=== PATIENT | female | born 1965 | race African-American/Black ===

== ENCOUNTER 2016-10-14 10:55 | Inpatient (IN) | payer OTHER, MEDICAID, MEDICARE ==
[~2016-10-14] VITALS: Ht 172.7 cm; Wt 149.0 kg
[~2016-10-14 10:55] MED LIST: ALBUAER3 INH; ANTI1CRE6 TOP; ASPI325T PO; FERR325T PO; FURO1TAB62 PO; GABA600T PO; PREG25 PO; TRAM50TA PO
[2016-10-14] MEDS ORDERED: VITA100064 PO (11:49)
[2016-10-14] MEDS ORDERED: LURA40 PO (11:49)
[2016-10-14] MEDS: LACTATED RINGER'S 1000 ML IV SCH (11:50)
[2016-10-14 11:56] VITALS: BP 135/58; PULSE 62; RESP 20; TEMP 97.9; O2SAT 96
[2016-10-14 12:12] LABS: AUTOMATED NEUTROPHIL # 2.3 TH/MM3 (1.8-7.7); EOSINOPHIL # 0.1 TH/MM3 (0-0.4); EOSINOPHIL % 2.8 % (0.0-4.0); HEMO FLAGS DIFF FINAL; LYMPH % 39.1 % (9.0-44.0); LYMPHOCYTE # 1.7 TH/MM3 (1.0-4.8); MEAN CELL VOLUME 88.2 FL (80.0-100.0); MEAN CORPUSCULAR HEMOGLOBIN 28.7 PG (27.0-34.0); MEAN CORPUSCULAR HGB CONC 32.6 % (32.0-36.0); MONO % 5.6 % (0.0-8.0); NEUT % 51.5 % (16.0-70.0); PLATELET COUNT 137 TH/MM3 (150-450); RED BLOOD COUNT 4.19 MIL/MM3 (4.00-5.30); RED CELL DISTRIBUTION WIDTH 18.9 % (11.6-17.2); WHITE BLOOD COUNT 4.4 TH/MM3 (4.0-11.0)
[2016-10-14] MEDS: SODIUM CHLORID 0.9% 500 ML IV SCH (12:15)
[2016-10-14] MEDS ORDERED: INSULIN HUMAN REGULAR 1,000 UNITS/10 ML VIAL SQ PRN (12:15)
[2016-10-14] MEDS ORDERED: ceFAZolin 2 GM PREMIX 50 ML IV SCH ×2 (12:15→12:45)
[2016-10-14] MEDS ORDERED: METOPROLOL TARTRATE 25 MG TAB PO PRN (12:15)
[2016-10-14] MEDS ORDERED: BUPIVACAINE/EPINEPHRINE 0.25% PF 30 ML VIAL ONE ×2 (13:28→15:16)
[2016-10-14] MEDS ORDERED: NEOSTIGMINE 3 MG/3 ML SYR IV ONE (13:55)
[2016-10-14] MEDS ORDERED: PROPOFOL 200 MG/20 ML AMP IV ONE (13:55)
[2016-10-14] MEDS ORDERED: ONDANSETRON HCL 4 MG/2 ML VIAL IV PUSH ONE (13:55)
[2016-10-14] MEDS ORDERED: KETOROLAC TROMETHAMINE 60 MG/2 ML (IM) VIAL IM ONE (13:55)
[2016-10-14] MEDS ORDERED: VANCOMYCIN HCL 1000 MG VIAL ONE (13:59)
[2016-10-14] MEDS ORDERED: SODIUM CHLOR 0.9% 250 ML INJ 250 ML ONE (13:59)
[2016-10-14] MEDS: LACTATED RINGER'S 1000 ML INJ 1,000 ML IV SCH (16:26)
[2016-10-14] MEDS ORDERED: Post-op Orders (for Pharmacy) MISC XX ONE (16:30)
[2016-10-14] MEDS ORDERED: ONDANSETRON HCL 4 MG/2 ML VIAL IV PRN (16:30)
[2016-10-14] MEDS ORDERED: SODIUM CHLORIDE 0.9% FLUSH 5 ML FLUSH IVF PRN (16:30)
[2016-10-14] MEDS ORDERED: oxyCODONE/ACETAMINOPHEN 5 MG/325 MG TAB PO PRN (16:30)
[2016-10-14] MEDS ORDERED: KETOROLAC TROMETHAMINE 30 MG/ML (IVP) VIAL IVP PRN (16:30)
[2016-10-14] MEDS ORDERED: diphenhydrAMINE HCL 50 MG/ML VIAL IVP PRN (16:30)
[2016-10-14] MEDS ORDERED: NALOXONE HCL 0.4 MG/ML AMP IV PRN (16:30)
[2016-10-14] MEDS ORDERED: DO NOT ADM ANY ANTICOAGULANT DRUGS XX PRN (16:36)
[2016-10-14] MEDS ORDERED: *morphine SULFATE 8 MG/ML PERIprocedure ONLY ONE ×2 (16:44→17:14)
[2016-10-14] MEDS ORDERED: MORPHINE SULFATE 4 MG/ML INJ ONE (16:45)
[2016-10-14] MEDS ORDERED: fentaNYL CITRATE 250 MCG/5 ML AMP ONE (16:45)
[2016-10-14] MEDS: MORPHINE SULFATE 30 MG/30 ML PCA IV SCH ×2 (17:12→22:37)
[2016-10-14 19:26] VITALS: O2SAT 97
[2016-10-14 20:00] VITALS: BP_SYST 126; BP_SYST 155; BP_DIAS 58; BP_DIAS 84; PULSE 106; PULSE 53; RESP 19; TEMP 96; TEMP 99.4; O2SAT 100; O2SAT 97
[2016-10-14] MEDS: PCA - TOTAL MG MORPHINE DELIVERED PER SHIFT SCH (20:35)
[2016-10-14] MEDS: SODIUM CHLORIDE 0.9% FLUSH 5 ML FLUSH IVF SCH (20:37)
[2016-10-15] VITALS (7 sets, daily range): BP systolic 112–158; BP diastolic 55–75; PULSE 54–88; RESP 18–20; TEMP 96–97.9; O2SAT 95–99
[2016-10-15] MEDS: LACTATED RINGER'S 1000 ML INJ 1,000 ML IV SCH ×2 (04:35→20:31)
[2016-10-15] MEDS: SODIUM CHLORID 0.9% 500 ML IV SCH (04:55)
[2016-10-15 05:40] LABS: AUTOMATED NEUTROPHIL # 8.1 TH/MM3 (1.8-7.7); BASOPHIL % 0.5 % (0.0-2.0); HEMO FLAGS DIFF FINAL; LYMPH % 12.2 % (9.0-44.0); LYMPHOCYTE # 1.2 TH/MM3 (1.0-4.8); MEAN CELL VOLUME 89.7 FL (80.0-100.0); MEAN CORPUSCULAR HEMOGLOBIN 29.2 PG (27.0-34.0); MEAN CORPUSCULAR HGB CONC 32.6 % (32.0-36.0); MONO % 3.6 % (0.0-8.0); NEUT % 83.7 % (16.0-70.0); PLATELET COUNT 132 TH/MM3 (150-450); RED BLOOD COUNT 4.24 MIL/MM3 (4.00-5.30); WHITE BLOOD COUNT 9.7 TH/MM3 (4.0-11.0)
[2016-10-15] MEDS: PCA - TOTAL MG MORPHINE DELIVERED PER SHIFT SCH ×3 (05:40→20:32)
[2016-10-15 06:08] LABS: BICARBONATE 28.2 MEQ/L (21.0-32.0); POTASSIUM 4.1 MEQ/L (3.5-5.1)
[2016-10-15] MEDS: LACTATED RINGER'S 1000 ML IV SCH (06:55)
[2016-10-15] MEDS: SODIUM CHLORIDE 0.9% FLUSH 5 ML FLUSH IVF SCH ×2 (06:55→20:31)
--- NOTE | 2016-10-15 07:56 | MP ---
cc: JAKE JONES M.D. DATE OF SURGERY 10/14/2016 PREOPERATIVE DIAGNOSES 1. Ventral incisional hernia. 2. Morbid obesity, BMI of 50. POSTOPERATIVE DIAGNOSES 1. Ventral incisional hernia. 2. Morbid obesity, BMI of 50. PROCEDURE PERFORMED 1. Laparoscopic ventral incisional hernia repair with mesh (Caldwell-Ayden 18 x 24). 2. Laparoscopic lysis of adhesions greater than one hour. SURGEON Jake Jones MD UPHOLSTERER HELPER Jose Madsen MD ANESTHESIA General endotracheal. COMPLICATIONS None. INDICATIONS FOR PROCEDURE Ms. Conner is a very pleasant 51-year-old morbidly obese female who apparently underwent a gastric bypass approximately 30 years ago. This was done through an upper midline incision. The patient developed a symptomatic hernia. It was enlarging and causing her discomfort. Of note, the patient has regained most her weight, is morbidly obese weighing approximately 320 pounds with a BMI of 50. She was seen and evaluated in the office. She was offered elective repair of the hernia. Because of her morbid obesity, she was advised laparoscopic repair would be most suited for her. She was agreeable. DETAILS The patient identified, brought to the operating room, placed supine on the operating table. After adequate general endotracheal anesthesia was achieved, the abdomen was prepped and draped in standard surgical fashion. Attention was directed to the right upper quadrant where a transverse incision was made after anesthetizing the skin and subcutaneous tissue with 0.25% Marcaine. Dissection was carried down through subcutaneous tissue, down to the level of the abdominal wall fascia. The abdominal wall fascia was then incised transversely. The abdominal musculature was then spread along the course its fibers. The peritoneum was then grasped, elevated and divided sharply. A finger was then placed in the peritoneal cavity without difficulty. Blunt balloon trocar was inserted and the abdomen was insufflated with 15 mm using CO2 gas. 30-degree laparoscope was inserted. Immediately we identified the upper midline hernia with omentum going up into the hernia sac. An extended 5-mm trocar was then placed in the right lower quadrant. Using meticulous blunt and harmonic scalpel dissection, the omentum was dissected out of the hernia sac. We did place a second 5-mm port in the left lower quadrant under direct vision after anesthetizing the skin and subcutaneous tissue with 0.25% Marcaine. The hernia defect was completely identified and photographed. The falciform ligament was then taken down as it was incorporated in the superior part of the hernia sac. The stomach was noted be densely adherent to the abdominal wall and this was carefully taken down with a harmonic scalpel. A partial-thickness rent was made in the stomach and this was closed with a 3-0 silk suture intracorporally. There was no evidence of bile leakage, no evidence of a full-thickness perforation. Once the abdominal wall was cleaned off several cm away from the defect, the defect was then measured. The defect measured about 8 x 12 cm. We therefore used an 18 x 24 piece of Caldwell-Ayden mesh to ensure we had generous fascial overlap underneath the mesh in all directions. An 18 x 24 Caldwell-Ayden DualMesh was then brought up. Stay sutures were then placed on the superior, inferior, medial and lateral borders of the mesh. The mesh was then introduced into the abdominal cavity. The stay sutures were used to pull the mesh up to the abdominal wall. First the superior border was brought up first and again with generous overlap over the fascia by several cm. Next the other four sutures were brought up and the mesh was noted be appropriately tight in all directions forming a steve shape. The mesh was then secured using the sutures in all four corners. Once the mesh was secured up with the sutures it was then circumferentially tacked with a ProTack device. The mesh was then photographed in place. Additional stay sutures then placed on the corner of the mesh using Caldwell CVS suture and the needle passer. Once the mass was fixated with eight sutures circumferentially, it was again photographed in place. Tacks were identified circumferentially and appropriately spaced along the edge of the mesh. The mesh was not loose in any direction and there were no gaps in the tacking. At this point attention was now directed to closure. Prior to closure we did visualize the area on the stomach that we had repaired and there was no evidence of bile leak and appeared to be intact with the suture appropriately tightened. Attention was now directed to closure of the fascial defect in the right upper quadrant. Using Caldwell CV passer, we passed a 0 Vicryl in a [id number] fashion in the right upper quadrant using the suture passer. Prior to tying this down, we removed the 10-mm port and there was a small defect in the central portion. A second 0 Vicryl was used to close this in between the previously placed [id number]. With this the fascia was completely closed. The wounds were then injected with additional local anesthetic. The right upper quadrant incision was closed with 3-0 and 4-0 Vicryl. The two other port sites were closed with 4-0 Vicryl. All puncture sites were closed with Steri-Strips. The patient tolerated the procedure well. Estimated blood loss was minimal. Please note this took a significant amount of time and instrumentation due to the patient's morbid obesity. We had to open special trocars in order to penetrate the patient's very thick abdominal wall. Lysis of adhesions took an excess of one hour. MD ANTHONY Kowalski/JEANNA /4:38 PM /7:18 AM
[2016-10-15] MEDS: RESP: ALBUTEROL CONC 2.5 MG/0.5 ML NEB NEB PRN (08:34)
[2016-10-15] MEDS ORDERED: ALBUTEROL SULFATE 90 MCG/ACT HFA 8 GM INHALER INH PRN (10:15)
--- NOTE | 2016-10-15 10:17 | PD.CONS ---
HPI Service [facility] Consult Requested By Dr. Hernandez Reason for Consult medical management Primary Care Physician No Primary Care Physician Diagnoses: History of Present Illness 51 y/o F with Pmhx of CVA, neuropathy, and schizophrenia who present with abdominal pain. Patient stated she had abdominal pain for years but never knew why. She stated she saw her physician and he was concerns so recommended surgery. She denied any N/V. Stated her stools were normal. [facility] consulted after hernia repair for medical management and patient has no complaints. She stated currently she is doing well. Denied any pain but does have DUCK OPERATOR pump. Review of Systems Constitutional: DENIES: Diaphoretic episodes, Fatigue, Fever, Weight gain, Weight loss, Chills, Dizziness, Change in appetite, Night Sweats Endocrine: DENIES: Abnorml menstrual pattern, Heat/cold intolerance, Polydipsia , Polyuria, Polyphagia Eyes: DENIES: Blurred vision, Diplopia, Eye inflammation, Eye pain, Vision loss , Photosensitivity, Double Vision Ears, nose, mouth, throat: DENIES: Tinnitus, Hearing loss, Vertigo, Nasal discharge, Oral lesions, Throat pain, Hoarseness, Ear Pain, Running Nose, Epistaxis, Sinus Pain, Toothache, Odynophagia Respiratory: DENIES: Apneas, Cough, Snoring, Wheezing, Hemoptysis, Sputum production, Shortness of breath Cardiovascular: DENIES: Chest pain, Palpitations, Syncope, Dyspnea on Exertion , PND, Lower Extremity Edema, Orthopnea, Claudication Gastrointestinal: DENIES: Abdominal pain, Black stools, Bloody stools, Constipation, Diarrhea, Nausea, Vomiting, Difficulty Swallowing, Anorexia Genitourinary: DENIES: Abnormal vaginal bleeding, Dysmenorrhea, Dyspareunia, Sexual dysfunction, Urinary frequency, Urinary incontinence, Urgency, Hematuria , Dysuria, Nocturia, Vaginal discharge Musculoskeletal: DENIES: Joint pain, Muscle aches, Stiffness, Joint Swelling, Back pain, Neck pain Integumentary: DENIES: Abnormal pigmentation, Pruritus, Rash, Nail changes, Breast masses, Breast skin changes, Nipple discharge Hematologic/lymphatic: DENIES: Bruising, Lymphadenopathy Immunologic/allergic: DENIES: Eczema, Urticaria Neurologic: DENIES: Abnormal gait, Headache, Localized weakness, Paresthesias, Seizures, Speech Problems, Tremor, Poor Balance Psychiatric: DENIES: Anxiety, Confusion, Mood changes, Depression, Hallucinations, Agitation, Suicidal Ideation, Homicidal Ideation, Delusions Past Family Social History Allergies: Coded Allergies: No Known Allergies (Verified , 10/14/16) Past Medical History CVA Schizophrenia Neuropathy Past Surgical History gastric bypass and Reported Medications Reported Meds & Active Scripts Active Reported Vitamin D (Cholecalciferol) 1,000 Unit Tab 1,000 Units PO DAILY Latuda (Lurasidone) 40 Mg Tab 40 Mg PO DAILY Lasix (Furosemide) 20 Mg Tab 20 Mg PO DAILY Ferrous Sulfate 325 Mg Tab 325 Mg PO BID Tramadol (Tramadol HCl) 50 Mg Tab Unknown Dose PO Q8H PRN Proair Hfa 8.5 GM Inh (Albuterol Sulfate) 90 Mcg/Act Aer 2 Puff INH Q6H PRN 108 mcg/actuation Anti-Fungal (Clotrimazole (Topical)) 1 % Cre 1 Applic TOP TID PRN Aspirin 325 Mg Tab 325 Mg PO DAILY Gabapentin 600 Mg Tab 2 Tab PO TID Active Ordered Medications Current Medications Lactated Ringer's 1,000 ml @ 30 mls/hr Q24H IV Last administered on 10/14/16 11:50; Start 10/14/16 at 12:15 Sodium Chloride (NS 500 ml Inj) 500 ml @ 30 mls/hr [id number] IV ; Start 10/14/16 at 12:15; Stop 10/15/16 at 12:14 Insulin Human Regular (NovoLIN R INJ) See Protocol Table ... UNSCH X1 PRN SQ SEE PROTOCOL; Start 10/14/16 at 12:15; Stop 10/15/16 at 12:14 Metoprolol Tartrate 25 mg 25 mg UNSCH X1 PRN PO SEE LABEL COMMENTS; Start 10/14 at 12:15; Stop 10/15/16 at 12:14 Cefazolin Sodium/ Dextrose 50 ml @ 100 mls/hr PLAN CHECKER IV Last administered on 10/14/16 12:30; Start 10/14/16 at 12:15; Stop 10/17/16 at 12:14 Cefazolin Sodium/ Dextrose (Ancef 2 Gm Premix) 50 ml @ 100 mls/hr PLAN CHECKER IV ; Start 10/14/16 at 12:45; Stop 10/17/16 at 12:44; Status Cancel Bupivacaine HCl/ Epinephrine Bitart (Marcaine-Epi Pf 0.25% Inj) 30 ml STK-MED ONCE .ROUTE Last administered on 10/14/16 14:17; Start 10/14/16 at 13:28; Stop 10/14/16 at 13:29; Status DC Vancomycin HCl 1000 mg 1,000 mg STK-MED ONCE .ROUTE Last administered on 14:10; Start 10/14/16 at 13:59; Stop 10/14/16 at 14:00; Status DC Sodium Chloride (NS 250 ml Inj) 250 ml @ As Directed STK-MED ONCE .ROUTE ; Start 10/14/16 at 13:59; Stop 10/14/16 at 14:00; Status DC Bupivacaine HCl/ Epinephrine Bitart 30 ml 30 ml STK-MED ONCE .ROUTE Last administered on 10/14/16 15:20; Start 10/14/16 at 15:16; Stop 10/14/16 at 15:17 ; Status DC Lactated Ringer's (Lr 1000 ml Inj) 1,000 ml @ 100 mls/hr Q10H IV Last administered on 10/15/16 04:35; Start 10/14/16 at 16:26 IV Flush (NS Flush) 2 ml UNSCH PRN IVF FLUSH AFTER USING IV ACCESS; Start 10/14 at 16:30 IV Flush (NS Flush) 2 ml BID IVF ; Start 10/14/16 at 21:00 Ketorolac Tromethamine (Toradol Inj) 30 mg Q6H PRN IVP PAIN SCALE 1 TO 5; Start 10/14/16 at 16:30; Stop 10/19/16 at 16:29 Oxycodone/ Acetaminophen (Percocet 5-325 Mg) 1 tab Q4H PRN PO PAIN SCALE 1 TO 5; Start 10/14/16 at 16:30 Oxycodone/ Acetaminophen (Percocet 5-325 Mg) 2 tab Q4H PRN PO PAIN SCALE 6 TO 10; Start 10/14/16 at 16:30 Ondansetron HCl (Zofran Inj) 4 mg Q4H PRN IV NAUSEA OR VOMITING; Start at 16:30 Diphenhydramine HCl (Benadryl Inj) 50 mg Q6H PRN IVP ITCHING; Start 10/14/16 at 16:30 Miscellaneous Information (Post-op Orders (for Pharmacy)) STAT ONCE XX ; Start 10/14/16 at 16:30; Stop 10/14/16 at 17:01; Status DC Miscellaneous Information 1 ONCE ONCE XX ; Start 10/14/16 at 16:30; Stop at 16:55; Status DC Enoxaparin Sodium (Lovenox Inj) 40 mg Q24H SQ ; Start 10/15/16 at 15:30 Naloxone HCl (Narcan Inj) 0.4 mg UNSCH PRN IV RESPIRATORY RATE LESS THAN 10; Start 10/14/16 at 16:30 Morphine Sulfate (Morphine 1 Mg/ ml DUCK OPERATOR) 30 mg UNSCH IV Last administered on 22:37; Start 10/14/16 at 16:30 DUCK OPERATOR Dosage Infused (Pha) 1 Q8HR .XX Last administered on 10/15/16 05:40; Start 10/14/16 at 16:30 Albuterol Sulfate (Albuterol Concentrated Neb) 2.5 mg Q6HR NEB PRN NEB SHORTNESS OF BREATH Last administered on 10/15/16 08:34; Start 10/14/16 at 16:30 Morphine Sulfate (*morphine INJ PERIprocedure ONLY) 8 mg STK-MED ONCE .ROUTE Last administered on 10/14/16 16:44; Start 10/14/16 at 16:44; Stop 10/14/16 at 16:45; Status DC Fentanyl Citrate (fentaNYL INJ) 250 mcg STK-MED ONCE .ROUTE ; Start 10/14/16 at 16:45; Stop 10/14/16 at 16:46; Status DC Morphine Sulfate (Morphine Inj) 8 mg STK-MED ONCE .ROUTE ; Start 10/14/16 at 16: 45; Stop 10/14/16 at 16:46; Status DC Miscellaneous Information ALL NURSING DEPARTME... UNSCH PRN XX SEE LABEL COMMENTS; Start 10/14/16 at 16:36; Stop 10/15/16 at 16:35 Morphine Sulfate (*morphine INJ PERIprocedure ONLY) 8 mg STK-MED ONCE .ROUTE Last administered on 10/14/16 17:14; Start 10/14/16 at 17:14; Stop 10/14/16 at 17:15; Status DC Family History Father hx of HTN and DM. mother hx of CVD. brother hx of lung cancer. Social History Patient lives in [place]. Denied any alcohol, tobacco or illicit drug use. Physical Exam Vital Signs Vital Signs Date Time Temp Pulse Resp B/P Pulse Ox O2 Delivery O2 Flow Rate FiO2 10/15/16 08:35 99 21 10/15/16 08:00 97.9 76 19 136/65 97 10/15/16 05:40 18 10/15/16 04:00 96.0 66 20 158/69 96 10/15/16 00:48 96 21 10/15/16 00:00 96.0 54 19 112/55 96 10/14/16 22:37 18 10/14/16 20:35 18 10/14/16 20:00 96.0 53 19 126/58 100 10/14/16 19:26 97 21 10/14/16 18:00 64 17 153/70 97 Nasal Cannula 2 10/14/16 17:30 56 12 164/77 97 Nasal Cannula 2 10/14/16 17:15 64 15 154/72 96 Nasal Cannula 2 10/14/16 17:12 13 10/14/16 17:00 63 16 154/72 92 Nasal Cannula 2 10/14/16 16:45 65 14 138/64 95 Room Air 10/14/16 16:35 97.4 72 18 151/54 94 Simple Mask 8 10/14/16 11:56 97.9 62 20 135/58 96 Physical Exam GENERAL: This is a well-nourished, well-developed patient, in no apparent distress. SKIN: No rashes, ecchymoses or lesions. Cool and dry. HEAD: Atraumatic. Normocephalic. No temporal or scalp tenderness. EYES: Pupils equal round and reactive. Extraocular motions intact. No scleral icterus. No injection or drainage. ENT: Nose without bleeding, purulent drainage or septal hematoma. Throat without erythema, tonsillar hypertrophy or exudate. Uvula midline. Airway patent. NECK: Trachea midline. No JVD or lymphadenopathy. Supple, nontender, no meningeal signs. CARDIOVASCULAR: Regular rate and rhythm without murmurs, gallops, or rubs. RESPIRATORY: Clear to auscultation. Breath sounds equal bilaterally. No wheezes , rales, or rhonchi. GASTROINTESTINAL: Abdomen soft, non-tender, nondistended. No hepato-splenomegaly , or palpable masses. No guarding. wounds are dry clean and intact. MUSCULOSKELETAL: Extremities without clubbing, cyanosis, or edema. No joint tenderness, effusion, or edema noted. No calf tenderness. Negative Homans sign bilaterally. NEUROLOGICAL: Awake and alert. Cranial nerves II through XII intact. Motor and sensory grossly within normal limits. Five out of 5 muscle strength in all muscle groups. Normal speech. Laboratory Laboratory Tests Test 10/14/16 10/15/16 11:45 05:10 White Blood Count 4.4 9.7 Red Blood Count 4.19 4.24 Hemoglobin 12.0 12.4 Hematocrit 37.0 38.0 Mean Corpuscular Volume 88.2 89.7 Mean Corpuscular Hemoglobin 28.7 29.2 Mean Corpuscular Hemoglobin 32.6 32.6 Concent Red Cell Distribution Width 18.9 18.0 Platelet Count 137 132 Mean Platelet Volume 9.5 9.6 Neutrophils (%) (Auto) 51.5 83.7 Lymphocytes (%) (Auto) 39.1 12.2 Monocytes (%) (Auto) 5.6 3.6 Eosinophils (%) (Auto) 2.8 0.0 Basophils (%) (Auto) 1.0 0.5 Neutrophils # (Auto) 2.3 8.1 Lymphocytes # (Auto) 1.7 1.2 Monocytes # (Auto) 0.2 0.3 Eosinophils # (Auto) 0.1 0.0 Basophils # (Auto) 0.0 0.0 CBC Comment DIFF FINAL DIFF FINAL Differential Comment Sodium Level 137 Potassium Level 4.1 Chloride Level 103 Carbon Dioxide Level 28.2 Anion Gap 6 Blood Urea Nitrogen 10 Creatinine 0.75 Estimat Glomerular Filtration 99 Rate Random Glucose 100 Calcium Level 10.1 Result Diagram: 10/15/16 0510 10/15/16 0510 Assessment and Plan Assessment and Plan Ventral incisional hernia -s/p laparoscopic ventral incisional hernia repair with mesh ([place]-Ayden 18 x 24) / lysis of adhesions done today. -being managed by surgery. -currently on DUCK OPERATOR. Schizophrenia, peripheral neuropathy, hx of CVA -continues with home medication. DVT prophylaxis -on lovenox Code Status full Discussed Condition With patient Rohini Ceballos MD Oct 15, 2016 10:17
[2016-10-15] MEDS ORDERED: ACETAMINOPHEN/HYDROcodone 325 MG/7.5 MG TAB PO PRN (10:30)
--- NOTE | 2016-10-15 10:34 | HHI.PR ---
Subjective Subjective Notes doing well. wants real food. pain only in RUQ, using BOX MACHINE OPERATOR. has already been oob Objective Vitals/I&O Vital Signs Date Time Temp Pulse Resp B/P Pulse Ox O2 Delivery O2 Flow Rate FiO2 10/15/16 08:35 99 21 10/15/16 08:00 97.9 76 19 136/65 10/14/16 18:00 Nasal Cannula 2 Labs Laboratory Tests Test 10/14/16 10/15/16 11:45 05:10 White Blood Count 4.4 9.7 Red Blood Count 4.19 4.24 Hemoglobin 12.0 12.4 Hematocrit 37.0 38.0 Mean Corpuscular Volume 88.2 89.7 Mean Corpuscular Hemoglobin 28.7 29.2 Mean Corpuscular Hemoglobin 32.6 32.6 Concent Red Cell Distribution Width 18.9 18.0 Platelet Count 137 132 Mean Platelet Volume 9.5 9.6 Neutrophils (%) (Auto) 51.5 83.7 Lymphocytes (%) (Auto) 39.1 12.2 Monocytes (%) (Auto) 5.6 3.6 Eosinophils (%) (Auto) 2.8 0.0 Basophils (%) (Auto) 1.0 0.5 Neutrophils # (Auto) 2.3 8.1 Lymphocytes # (Auto) 1.7 1.2 Monocytes # (Auto) 0.2 0.3 Eosinophils # (Auto) 0.1 0.0 Basophils # (Auto) 0.0 0.0 CBC Comment DIFF FINAL DIFF FINAL Differential Comment Sodium Level 137 Potassium Level 4.1 Chloride Level 103 Carbon Dioxide Level 28.2 Anion Gap 6 Blood Urea Nitrogen 10 Creatinine 0.75 Estimat Glomerular Filtration 99 Rate Random Glucose 100 Calcium Level 10.1 Cardiovascular: Regular Lungs: Clear Abdomen: Non-distended, Post-op tenderness, BS normal Wound Wound : Wound Location: Abdomen Appearance: Clean & Dry A/P Assessment and Plan POD 1 lap ventral hernia repair with mesh increase diet kvo ivf oob Eduard Hernandez MD Oct 15, 2016 10:34
[2016-10-15] MEDS ORDERED: MORPHINE SULFATE 4 MG/ML INJ IV PRN (11:00)
[2016-10-15] MEDS ORDERED: ONDANSETRON HCL 4 MG/2 ML VIAL IV PUSH PRN (11:00)
[2016-10-15] MEDS: GABAPENTIN 300 MG CAP PO SCH ×2 (11:14→16:27)
--- NOTE | 2016-10-15 11:36 | EKG ---
Date Performed: 10/14/2016 Time Performed: 11:39:00 PTAGE: 51 years EKG: Sinus rhythm NONSPECIFIC T-WAVE ABNORMALITY BORDERLINE ECG PREVIOUS TRACING : 10/26/2014 23.50 DOCTOR: Jasmeet Dickson Interpretating Date/Time 10/15/2016 11:35:29
[2016-10-15] MEDS: ENOXAPARIN SODIUM 40 MG/0.4 ML SYRINGE SQ SCH (14:51)
[2016-10-15] MEDS: MORPHINE SULFATE 30 MG/30 ML PCA IV SCH (18:20)
[2016-10-15] MEDS: FERROUS SULFATE 325 MG (65 MG ELEMENTAL IRON) TAB PO SCH (20:33)
[2016-10-16] VITALS (8 sets, daily range): BP systolic 114–138; BP diastolic 53–69; PULSE 83–96; RESP 17–18; TEMP 97.5–99.2; O2SAT 92–99
[2016-10-16] MEDS: PCA - TOTAL MG MORPHINE DELIVERED PER SHIFT SCH ×2 (06:00→13:06)
[2016-10-16] MEDS: LURASIDONE 40 MG TAB PO SCH (08:09)
[2016-10-16] MEDS: SODIUM CHLORIDE 0.9% FLUSH 5 ML FLUSH IVF SCH ×2 (08:09→21:53)
[2016-10-16] MEDS: CHOLECALCIFEROL (VIT D3) 1000 UNIT TAB PO SCH (08:09)
[2016-10-16] MEDS: GABAPENTIN 300 MG CAP PO SCH ×3 (08:09→15:56)
[2016-10-16] MEDS: FUROSEMIDE 20 MG TAB PO SCH (08:09)
[2016-10-16] MEDS: FERROUS SULFATE 325 MG (65 MG ELEMENTAL IRON) TAB PO SCH ×2 (08:09→21:50)
[2016-10-16] MEDS: ASPIRIN 325 MG TAB PO SCH (08:09)
[2016-10-16] MEDS: LACTATED RINGER'S 1000 ML IV SCH (11:18)
--- NOTE | 2016-10-16 11:31 | HHI.PR ---
Subjective Remarks Follow-up peripheral neuropathy, schizophrenia, history of CVA. Patient states that she feels better today. Pain is adequately controlled. Bleeding SODA DISPENSER less frequently. Tolerating small amounts by mouth. Objective Vitals Vital Signs Date Time Temp Pulse Resp B/P Pulse Ox O2 Delivery O2 Flow Rate FiO2 10/16/16 08:00 99.2 84 18 125/63 95 10/16/16 06:00 16 10/16/16 04:00 98.6 89 18 136/69 95 10/16/16 00:00 98.2 91 17 138/56 92 10/15/16 20:32 18 10/15/16 20:00 97.6 88 18 156/68 95 10/15/16 16:00 96.8 68 18 146/75 96 10/15/16 16:00 96.8 68 18 146/75 96 I/O 10/15/16 10/15/16 10/15/16 10/16/16 10/16/16 10/16/16 07:00 15:00 23:00 07:00 15:00 23:00 Intake Total 1418 ml 723 ml 299 ml 670 ml Output Total 1600 ml 950 ml 1300 ml 2250 ml Balance -182 ml -227 ml -1001 ml -1580 ml Intake Oral 600 ml 240 ml 120 ml 480 ml IV Total 818 ml 483 ml 179 ml 190 ml Output Urine Total 1600 ml 950 ml 1300 ml 2250 ml # Bowel Movements 0 0 Result Diagram: 10/15/16 0510 10/15/16 0510 Objective Remarks General: Obese female in no acute distress. Sitting up in a chair. Heart: Regular rate and rhythm. No murmur. Lungs: Clear to auscultation bilaterally. No wheezes, rales, or rhonchi. Breathing is nonlabored. Abdomen: Soft, appropriately tender. Extremities: No lower extremity edema. Psych: Alert and oriented. Urinary Catheter: No Vascular Central Line Catheter: No A/P Problem List: (1) Schizophrenia ICD Code: F20.9 Status: Acute (2) History of CVA (cerebrovascular accident) ICD Code: Z86.73 Status: Acute (3) Neuropathic pain ICD Code: M79.2 Status: Acute Assessment and Plan 1. Ventral incisional hernia: Status post laparoscopic ventral incisional hernia repair with mesh, lysis of adhesions. Management per general surgery. Continue pain control, bowel regimen. 2. Schizophrenia: Continue Latuda. 3. Peripheral neuropathy: Continue gabapentin. 4. History of CVA: Continue aspirin. 5. DVT prophylaxis: Lovenox. Eleazar Tsai MD Oct 16, 2016 11:31
[2016-10-16] MEDS: oxyCODONE/ACETAMINOPHEN 5 MG/325 MG TAB PO PRN ×2 (15:56→21:50)
[2016-10-16] MEDS: ENOXAPARIN SODIUM 40 MG/0.4 ML SYRINGE SQ SCH (15:56)
[2016-10-16] MEDS: RESP: ALBUTEROL CONC 2.5 MG/0.5 ML NEB NEB PRN ×2 (16:23→21:19)
--- NOTE | 2016-10-16 16:49 | HHI.PR ---
Subjective Subjective Notes Resting in bed Pain under control Objective Vitals/I&O Vital Signs Date Time Temp Pulse Resp B/P Pulse Ox O2 Delivery O2 Flow Rate FiO2 10/16/16 16:00 98.5 96 17 124/53 95 10/15/16 08:35 21 10/14/16 18:00 Nasal Cannula 2 Cardiovascular: Regular Lungs: Clear Abdomen: Other (soft abdomen; lap incision c/d/i ) Extremities: No edema A/P Assessment and Plan 51 year old female POD1 lap VHR with mesh -Tolerating regular diet -DC HARDENING MACHINE OPERATOR HELPER -DC fluids -OOB and mobilize -HEPAS following I certify and attest that I personally examined this patient and reviewed her findings in the EMR. Ms Alfaro is documenting our encounter on my behalf and entered orders under my direct supervision. I discussed our recommendations with the patient and family at the bedside. I also discussed our encounter with the nursing staff present. JAKE JONES MD [facility] Christina AlfaroP Oct 16, 2016 16:49 Jake Jones MD Oct 17, 2016 10:45
[2016-10-17 00:07] VITALS: BP 114/50; PULSE 89; RESP 21; TEMP 98.9; O2SAT 93
[2016-10-17] MEDS: RESP: ALBUTEROL CONC 2.5 MG/0.5 ML NEB NEB PRN ×2 (04:24→09:25)
[2016-10-17] MEDS: oxyCODONE/ACETAMINOPHEN 5 MG/325 MG TAB PO PRN ×2 (06:27→11:04)
[2016-10-17] MEDS: ASPIRIN 325 MG TAB PO SCH (07:58)
[2016-10-17] MEDS: FUROSEMIDE 20 MG TAB PO SCH (07:58)
[2016-10-17] MEDS: CHOLECALCIFEROL (VIT D3) 1000 UNIT TAB PO SCH (07:58)
[2016-10-17] MEDS: SODIUM CHLORIDE 0.9% FLUSH 5 ML FLUSH IVF SCH (07:58)
[2016-10-17] MEDS: LURASIDONE 40 MG TAB PO SCH (07:58)
[2016-10-17] MEDS: GABAPENTIN 300 MG CAP PO SCH ×2 (07:58→11:52)
[2016-10-17] MEDS: FERROUS SULFATE 325 MG (65 MG ELEMENTAL IRON) TAB PO SCH (07:58)
[2016-10-17 08:00] VITALS: BP 130/60; PULSE 96; RESP 20; TEMP 97.6; O2SAT 95
[2016-10-17] MEDS: LACTATED RINGER'S 1000 ML IV SCH (08:00)
--- NOTE | 2016-10-17 11:31 | HHI.DS ---
Discharge Summary Admission Date Oct 14, 2016 at 16:33 Discharge Date: Oct 17, 2016 Admitting Diagnosis Brief History This is a 51 year old female s/p laparoscopic ventral hernia repair with Dr. Hernandez. CBC/BMP: 10/15/16 0510 10/15/16 0510 Significant Findings Laboratory Tests Test 10/14/16 10/15/16 11:45 05:10 Red Cell Distribution Width 18.9 % 18.0 % (11.6-17.2) (11.6-17.2) Platelet Count 137 TH/MM3 132 TH/MM3 (150-450) (150-450) Neutrophils (%) (Auto) 83.7 % (16.0-70.0) Neutrophils # (Auto) 8.1 TH/MM3 (1.8-7.7) PE at Discharge Alert and awake Resp: CTAB Cardio: RRR Abd: soft non tender; lap sites c/d/i Hospital Course This is a 51 year old female s/p laparoscopic ventral hernia repair with Dr. Hernandez. The patient had no post-op complications. Her pain was controlled using oral pain medications. She was able to tolerate regular diet. She will follow up with Dr. Hernandez in about 7-10 days. She was given instructions on incision care. Pt Condition on Discharge: Good Discharge Disposition: Discharge Home Discharge Instructions DIET: Follow Instructions for: As Tolerated, No Restrictions Activities you can perform: See Additionl Instruction Other Activity Instructions: Okay to shower Pat incision dry No heavy lifting pulling or pushing Christina Alfaro Oct 17, 2016 11:31
== END 2016-10-17 12:28 | disposition home or self-care (01) | DRG 327 ==
LOC: HSDC 10:55 → HSDI 16:33 → N07B 18:26
PROVIDERS: ADMIT Surgery Trauma Surgery; ATTEND Surgery Trauma Surgery
PROC: 0DQ64ZZ Repair Stomach, Percutaneous Endoscopic Approach (ICD-10-PCS; 2016-10-14)
PROC: 0DN64ZZ Release Stomach, Percutaneous Endoscopic Approach (ICD-10-PCS; 2016-10-14)
PROC: 0WUF4JZ Supplement Abdominal Wall with Synthetic Substitute, Percutaneous Endoscopic Approach (ICD-10-PCS; principal; 2016-10-14 13:50)
DX: K43.2 Incisional hernia without obstruction or gangrene (principal); K91.71 Accidental puncture and laceration of a digestive system organ or structure during a digestive system procedure; Z68.43 Body mass index [BMI] 50.0-59.9, adult; E66.01 Morbid (severe) obesity due to excess calories; G62.9 Polyneuropathy, unspecified; Z98.84 Bariatric surgery status; K66.0 Peritoneal adhesions (postprocedural) (postinfection); F20.9 Schizophrenia, unspecified; Z86.73 Personal history of transient ischemic attack (TIA), and cerebral infarction without residual deficits; Z80.1 Family history of malignant neoplasm of trachea, bronchus and lung; Z83.3 Family history of diabetes mellitus; Z82.49 Family history of ischemic heart disease and other diseases of the circulatory system
CPT/HCPCS: 80048; 85025; 93005; 94150; 94640; 94664; C1781; J0690; J1650; J1885; J2270; J2405; J2710; J3010; J3370; J7050; J7120; J7611

== ENCOUNTER 2016-11-13 11:12 | Emergency (ER) | payer MEDICAID, MEDICARE, OTHER ==
[~2016-11-13] VITALS: Ht 165.1 cm; Wt 100.0 kg
[~2016-11-13 11:12] MED LIST changes: +LURA40 PO; -PREG25 PO; +VITA100064 PO
[2016-11-13 11:20] VITALS: BP 150/65; PULSE 64; RESP 24; O2SAT 98
[2016-11-13] MEDS ORDERED: [UNRECOGNIZED DRUG - CODE] EACH NARE (11:45)
[2016-11-13 12:01] VITALS: BP 150/65; PULSE 64; RESP 24; TEMP 98.6; O2SAT 100
--- NOTE | 2016-11-13 12:27 | PD ---
HPI Chief Complaint: Respiratory Symptoms Time Seen by Provider: 12:27 Travel History International Travel<30 days: No Contact w/Intl Traveler<30days: No Traveled to known affect area: No History of Present Illness HPI 51-year-old female with history of hypertension, CVA, DVT, schizophrenia presents to the emergency department for evaluation of shortness of breath. The patient states that she has had difficulty catching her breath for about 2- 3 days. States this is been intermittent and worse at night. Denies any aggravating factors. Denies any alleviating factors. States that she's also had some intermittent left anterior chest pressure. States that she has had runny nose and nasal congestion for the last several days as well. Denies any fever, chills, nausea, vomiting, abdominal pain, diaphoresis, cough. States that she has swelling of her bilateral ankles which is chronic for her. States that she had a laparoscopic ventral hernia repair last month and has not been taking her aspirin since then. She does have a history of DVT in the left leg and is not on any anticoagulation. No other complaints. Of note the patient is a poor historian. PFSH Past Medical History Arthritis: No Asthma: No Autoimmune Disease: No Blood Disorders: Yes (DVT ) Heart Rhythm Problems: No Cancer: No Cardiovascular Problems: Yes (edema in BLE) High Cholesterol: No Chemotherapy: No Chest Pain: No Congestive Heart Failure: No COPD: No Cerebrovascular Accident: Yes Diabetes: No Deep Vein Thrombosis: Yes Endocrine: No GERD: No Genitourinary: No Hepatitis: No Hiatal Hernia: No Hypertension: Yes Immune Disorder: Yes (sickle cell TRAIT) Kidney Stones: No Neurologic: Yes (CVA 2013, right side defecit) Psychiatric: Yes (depression) Respiratory: Yes (borderline asthma) Immunizations Current: No Migraines: No Radiation Therapy: No Renal Failure: No Seizures: No Sleep Apnea: No Thyroid Disease: No Ulcer: No ?: Not Menopausal: Yes : 1 Para: 1 Past Surgical History Abdominal Surgery: Yes (gastric bypass 1997) AICD: No Cardiac Surgery: No Section: Yes (X1) Ear Surgery: No Endocrine Surgery: No Eye Surgery: No Genitourinary Surgery: No Gynecologic Surgery: Yes (c section) Joint Replacement: No Oral Surgery: No Pacemaker: No Thoracic Surgery: No Other Surgery: Yes (HERNIA SURGERY APPROX 1 MONTH AGO) Social History Alcohol Use: No Tobacco Use: Yes (4 black & mild per day) Substance Use: Yes (marijuana) Allergies-Medications (Allergen,Severity, Reaction): Coded Allergies: No Known Allergies (Verified , 10/14/16) Reported Meds & Prescriptions Reported Meds & Active Scripts Active Flonase Nasal [place] (Fluticasone Nasal [place]) 50 Mcg/Act [place] 50 Mcg EACH NARE BID Reported Afrin Saline Nasal Mist (Sodium Chloride) 0.65% London 2 London EACH NARE DIRECTED Vitamin D (Cholecalciferol) 1,000 Unit Tab 1,000 Units PO DAILY Latuda (Lurasidone) 40 Mg Tab 40 Mg PO DAILY Lasix (Furosemide) 20 Mg Tab 20 Mg PO DAILY Ferrous Sulfate 325 Mg Tab 325 Mg PO BID Proair Hfa 8.5 GM Inh (Albuterol Sulfate) 90 Mcg/Act Aer 2 Puff INH Q6H PRN 108 mcg/actuation Aspirin 325 Mg Tab 325 Mg PO DAILY Gabapentin 600 Mg Tab 2 Tab PO TID Review of Systems Except as stated in HPI: all other systems reviewed are Neg Physical Exam Narrative GENERAL: Well-nourished and well-developed female patient in no acute distress, tearful and anxious. SKIN: Warm and dry. HEAD: Normocephalic and atraumatic. EYES: No injection, drainage, or hyphema noted. PERRLA. EOMI. ENT: No nasal drainage noted. Oropharynx is clear. NECK: Supple and the trachea is midline. CARDIOVASCULAR: Regular rate and rhythm. RESPIRATORY: Breath sounds are equal bilaterally with no accessory muscle use, wheezing, rhonchi, or crackles. GASTROINTESTINAL: Abdomen is soft, non-tender, and nondistended. MUSCULOSKELETAL: No obvious deformities, swelling, cyanosis, or ecchymosis is present throughout the upper and lower extremities. Patient has full range of motion without any signs of neurovascular compromise. NEUROLOGICAL: Awake, alert, and oriented. Normal speech and gait. Cranial nerves are grossly intact. Data Data Last Documented VS Vital Signs Date Time Temp Pulse Resp B/P Pulse Ox O2 Delivery O2 Flow Rate FiO2 11/13/16 12:01 98.6 64 24 150/65 100 11/13/16 11:20 Room Air Orders Electrocardiogram (11/13/16 12:25) B-Type Natriuretic Peptide (11/13/16 12:25) Ckmb (Isoenzyme) Profile (11/13/16 12:25) Complete Blood Count With Diff (11/13/16 12:25) Comprehensive Metabolic Panel (11/13/16 12:25) Magnesium (Mg) (11/13/16 12:25) Prothrombin Time / Inr (Pt) (11/13/16 12:25) Act Partial Throm Time (Ptt) (11/13/16 12:25) Troponin I (11/13/16 12:25) Chest, Single Ap (11/13/16 12:25) Ecg Monitoring (11/13/16 12:25) Iv Access Insert/Monitor (11/13/16 12:25) Oximetry (11/13/16 12:25) Sodium Chloride 0.9% Flush (Ns Flush) (11/13/16 12:30) Ct Pulmonary Angiogram (11/13/16 12:25) Aspirin Chew (Aspirin Chew) (11/13/16 12:30) Lorazepam Inj (Ativan Inj) (11/13/16 15:00) Labs Laboratory Tests Test 11/13/16 12:50 White Blood Count 6.9 TH/MM3 Red Blood Count 3.81 MIL/MM3 Hemoglobin 11.2 GM/DL Hematocrit 34.0 % Mean Corpuscular Volume 89.2 FL Mean Corpuscular Hemoglobin 29.5 PG Mean Corpuscular Hemoglobin 33.0 % Concent Red Cell Distribution Width 16.6 % Platelet Count 202 TH/MM3 Mean Platelet Volume 8.5 FL Neutrophils (%) (Auto) 70.9 % Lymphocytes (%) (Auto) 20.3 % Monocytes (%) (Auto) 6.3 % Eosinophils (%) (Auto) 2.1 % Basophils (%) (Auto) 0.4 % Neutrophils # (Auto) 4.9 TH/MM3 Lymphocytes # (Auto) 1.4 TH/MM3 Monocytes # (Auto) 0.4 TH/MM3 Eosinophils # (Auto) 0.1 TH/MM3 Basophils # (Auto) 0.0 TH/MM3 CBC Comment DIFF FINAL Differential Comment Prothrombin Time 10.7 SEC Prothromb Time International 1.0 RATIO Ratio Activated Partial 23.3 SEC Thromboplast Time Sodium Level 140 MEQ/L Potassium Level 3.7 MEQ/L Chloride Level 107 MEQ/L Carbon Dioxide Level 25.1 MEQ/L Anion Gap 8 MEQ/L Blood Urea Nitrogen 5 MG/DL Creatinine 0.73 MG/DL Estimat Glomerular Filtration 102 ML/MIN Rate Random Glucose 85 MG/DL Calcium Level 10.6 MG/DL Magnesium Level 2.1 MG/DL Total Bilirubin 0.3 MG/DL Aspartate Amino Transf 17 U/L (AST/SGOT) Alanine Aminotransferase 16 U/L (ALT/SGPT) Alkaline Phosphatase 156 U/L Total Creatine Kinase 84 U/L Troponin I LESS THAN 0.02 NG/ML B-Type Natriuretic Peptide 225 PG/ML Total Protein 8.0 GM/DL Albumin 3.2 GM/DL [facility] Medical Decision Making Medical Screen Exam Complete: Yes Emergency Medical Condition: Yes Differential Diagnosis Pneumonia versus ACS versus CHF versus PE versus bronchitis Narrative Course 51-year-old female presents to the emergency department for evaluation of shortness of breath and chest pain. Patient is afebrile, vital signs are stable. Physical examination is unremarkable. Patient had surgery last month for a laparoscopic ventral hernia repair and has a history of DVT. IV access is obtained, labs been drawn and sent. Patient is placed on cardiac telemetry and pulse oximetry monitoring. CT pulmonary angiogram has been ordered and is pending. EKG shows sinus rhythm with no acute ST elevations or depressions. CBC shows mild anemia with hemoglobin of 11.2, hematocrit 34.0. CMP is unremarkable. Troponin is less than 0.02. BNP is slightly elevated at 225. Coags are unremarkable. Chest x-ray is negative for any acute abnormalities. CT pulmonary angiogram is negative for any acute abnormalities or PE. Patient has remained stable while here in the emergency department. Her oxygen has been maintained at 100% on room air and she is in no acute distress. The patient has been tearful and anxious the entire visit, she has a well-known history of anxiety and schizophrenia. I discussed with her that all labs and imaging have been unremarkable and reassuring. I discussed with her that I suspect that her shortness of breath is related to her nasal congestion and her anxiety. I did offer her admission to chest pain center however the patient states that she would like to go home instead and agrees to return to the emergency department for any acute worsening of symptoms. Diagnosis Primary Impression: Nasal congestion Additional Impressions: Shortness of breath Anxiety Referrals: Primary Care Physician Patient Instructions: General Instructions, How to Use Nasal [place] (ED) Additional Instructions: Follow-up with your Primary Care Physician. Return to the ED for any acute worsening of symptoms. Med/Other Pt SpecificInfo: Prescription(s) given Scripts Fluticasone Nasal [place] (Flonase Nasal [place])50 Mcg/Act Spray50 Mcg EACH NARE BID #1 BOTTLE Ref 0 Prov:Jian Scruggs MD 11/13/16 Disposition: 01 DISCHARGE HOME Condition: Stable Mirella Curtis Nov 13, 2016 12:27
[2016-11-13] MEDS ORDERED: ASPIRIN 81 MG CHEW TAB PO ONE (12:30)
[2016-11-13] MEDS ORDERED: SODIUM CHLORIDE 0.9% FLUSH 10 ML FLUSH IVF PRN (12:30)
[2016-11-13 13:06] LABS: AUTOMATED NEUTROPHIL # 4.9 TH/MM3 (1.8-7.7); BASOPHIL % 0.4 % (0.0-2.0); EOSINOPHIL # 0.1 TH/MM3 (0-0.4); EOSINOPHIL % 2.1 % (0.0-4.0); HEMO FLAGS DIFF FINAL; LYMPH % 20.3 % (9.0-44.0); LYMPHOCYTE # 1.4 TH/MM3 (1.0-4.8); MEAN CELL VOLUME 89.2 FL (80.0-100.0); MEAN CORPUSCULAR HEMOGLOBIN 29.5 PG (27.0-34.0); MONO % 6.3 % (0.0-8.0); NEUT % 70.9 % (16.0-70.0); PLATELET COUNT 202 TH/MM3 (150-450); RED BLOOD COUNT 3.81 MIL/MM3 (4.00-5.30); RED CELL DISTRIBUTION WIDTH 16.6 % (11.6-17.2); WHITE BLOOD COUNT 6.9 TH/MM3 (4.0-11.0)
[2016-11-13 13:14] LABS: APTT (PATIENT) 23.3 SEC (24.3-30.1); PROTHROMBIN TIME - PATIENT 10.7 SEC (9.8-11.6)
[2016-11-13 13:24] LABS: ALT (GPT) 16 U/L (10-53); ANION GAP 8 MEQ/L (5-15); AST (GOT) 17 U/L (15-37); BICARBONATE 25.1 MEQ/L (21.0-32.0); BLOOD UREA NITROGEN 5 MG/DL (7-18); CHLORIDE 107 MEQ/L (98-107); GLOMERULAR FILTRATION RATE 102 ML/MIN (>89); MAGNESIUM 2.1 MG/DL (1.5-2.5); POTASSIUM 3.7 MEQ/L (3.5-5.1); SODIUM (NA) 140 MEQ/L (136-145)
[2016-11-13 13:28] LABS: ALKALINE PHOSPHATASE 156 U/L (45-117); TOTAL BILIRUBIN ADULT 0.3 MG/DL (0.2-1.0)
[2016-11-13 13:35] LABS: CREATINE KINASE 84 U/L (26-192)
--- NOTE | 2016-11-13 13:47 | RADRPT ---
EXAM DATE/TIME: 11/13/2016 12:30 [facility] COMPARISON: CHEST SINGLE AP, October 26, 2014, 17:25. INDICATIONS : Patient has been short of breath and had chest pain for two days. MEDICAL HISTORY : None. SURGICAL HISTORY : None. ENCOUNTER: Initial ACUITY: 2 days PAIN SCORE: 8/10 LOCATION: [facility], FINDINGS: Single AP view of the chest. The lungs are clear. Cardiomediastinal silhouette within normal limits. No evidence of pleural effusion or pneumothorax. CONCLUSION: No acute cardiopulmonary disease identified. Aldair Woods MD on November 13, 2016 at 13:45 Board Certified Radiologist. This report was verified electronically.
[2016-11-13] MEDS ORDERED: LORazepam 2 MG/ML VIAL IV PUSH ONE (15:00)
[2016-11-13] MEDS ORDERED: IOHEXOL 350 MG/ML 10 ML VIAL (for RAD DIAG) IV ONE (15:14)
--- NOTE | 2016-11-13 15:51 | RADRPT ---
EXAM DATE/TIME: 11/13/2016 15:14 [facility] COMPARISON: CTA CHEST W 3D RECON, May 17, 2014, 23:02. INDICATIONS : Increasing shortness of breath for a few days. IV CONTRAST: 75 cc Omnipaque 350 (iohexol) IV RADIATION DOSE: 23.30 CTDIvol (mGy) MEDICAL HISTORY : Hypertension. Deep venous thrombosis. Cardiovascular disease SURGICAL HISTORY : None. ENCOUNTER: Initial ACUITY: 3 days PAIN SCALE: 0/10 LOCATION: chest TECHNIQUE: Volumetric scanning of the chest was performed using a pulmonary embolism protocol MIP images were re constructed. Using automated exposure control and adjustment of the mA and/or kV according to patien t size, radiation dose was kept as low as reasonably achievable to obtain optimal diagnostic quality images. FINDINGS: PULMONARY ARTERIES: No filling defects are seen in the pulmonary arteries through the segmental level. LUNGS: There is no consolidation or pneumothorax . No concerning pulmonary nodule is visualized. PLEURAE: There is no pleural thickening or pleural effusion. MEDIASTINUM: There is good visualization of the great vessels of the middle mediastinum. No evidence of mediastin al or hilar adenopathy/mass. MUSCULOSKELETAL: Within normal limits for patient age. MISCELLANEOUS: The visualized upper abdominal organs demonstrate no acute abnormality. Prior ventral hernia utilizin g mesh. CONCLUSION: No acute disease. In particular, no pulmonary embolus. Isacc Graff Jr., MD on November 13, 2016 at 15:47 Board Certified Radiologist. This report was verified electronically.
[2016-11-13] MEDS ORDERED: FLUT1SPR5 EACH NARE (16:03)
--- NOTE | 2016-11-14 16:38 | EKG ---
Date Performed: 11/13/2016 Time Performed: 11:42:18 PTAGE: 51 years EKG: SINUS BRADYCARDIA WITH SINUS ARRHYTHMIA BORDERLINE ECG INTERPRETATION BASED ON A DEFAULT AG E OF 40 YEARS Compared to prior tracing no significant change PREVIOUS TRACING : 10/14/2016 11.39 DOCTOR: Monica Salazar Interpretating Date/Time 11/14/2016 16:36:44
== END 2016-11-13 16:08 | disposition home or self-care (01) ==
LOC: NEPA 11:12
DX: R09.81 Nasal congestion (principal); R06.02 Shortness of breath; R07.89 Other chest pain; R00.1 Bradycardia, unspecified; F41.9 Anxiety disorder, unspecified; F17.290 Nicotine dependence, other tobacco product, uncomplicated; I10 Essential (primary) hypertension
CPT/HCPCS: 71010; 71275; 80053; 82550; 83735; 83880; 84484; 85025; 85610; 85730; 93005; 96374; 99285; J2060; Q9967